=== PATIENT | female | born 1990 | race American Indian/Alaskan Native ===

== ENCOUNTER 2022-04-28 10:46 | Emergency (ER) | payer BC ==
--- NOTE | 2022-04-28 12:17 | Emergency Department Report ---
Stated Complaint: STOMACH PAIN/DEHYDRATION - HPI History of Present Illness: 31 Y with upper abdominal pain x 2 days with N/V no diarrhea. currently on cycle/ no other symptoms reported. - ROS Review of Systems: abdominal pain upper x 2 days N/V - Exam Physical Exam: non labored breathing noted. A/ox4 gait normal MSE screening note: Focused history and physical exam performed. Due to findings the following was ordered: medically screen done and orders placed. pending room assignment to have further eval. Active Orders - 24 Hr 04/28/22 12:14 Complete Blood Count Auto Diff Stat Comprehensive Metabolic Panel Stat HCG Qualitative, Urine Stat Lipase Stat Urinalysis Complete Stat US abdomen limited Stat 04/28/22 12:15 Radiology NPO after MN Prep ONCE ED Disposition for MSE Condition: Stable
--- NOTE | 2022-04-28 13:16 | Ultrasound Report ---
ULTRASOUND ABDOMEN, LIMITED (RIGHT UPPER QUADRANT) INDICATION: upper abdominal pain. COMPARISON: None available. FINDINGS: Pancreas: Obscured by bowel gas without identification of a significant abnormality. Liver: Normal in size, measuring 13.5 cm. Posteriorly along the right hepatic lobe on image 23 is a c ircumscribed hyperechoic mass without internal vascularity measuring 1.8 x 1.3 x 1.4 cm. No other viviana picious lesions. Normal portal venous flow. Gallbladder: No significant abnormality. Sonographic Cabrales's sign: Not performed. Bile ducts: No significant abnormality. Common Bile Duct measures 2.1 mm. Free fluid: None. Additional Findings: None. IMPRESSION: 1. Hyperechoic right hepatic lobe mass as above, most commonly representing a hemangioma. If there is clinical concern, an MRI abdomen with and without contrast (liver protocol) would be helpful for fur ther characterization. 2. No other significant abnormality to explain the patient's pain. Signer Name: Peter Mcmullen MD Signed: 04/28/2022 1:11 PM Workstation Name: [employer]
[2022-04-28 14:13] LABS: Basophils % (Auto) 0.1 % (0.0-1.8); Hematocrit 42.1 % (30.3-42.9); Hemoglobin 14.2 gm/dl (10.1-14.3); Lymphocytes # (Auto) 0.7 K/mm3 (1.2-5.4); Lymphocytes % (Auto) 8.7 % (13.4-35.0); Mean Corpuscular HGB Conc 34 % (30-34); Mean Corpuscular Volume 88 fl (79-97); Monocytes # (Auto) 0.2 K/mm3 (0.0-0.8); Platelet Count 299 K/mm3 (140-440); Red Blood Count 4.78 M/mm3 (3.65-5.03)
[2022-04-28 14:29] LABS: Alanine Aminotransferase 19 units/L (7-56); Albumin 5.4 g/dL (3.9-5); Blood Urea Nitrogen 16 mg/dL (7-17); Calcium 10.4 mg/dL (8.4-10.2); Hemolysis Index 0
[2022-04-28 14:31] LABS: BUN/Creatinine Ratio 23
[2022-04-28] MEDS ORDERED: SODIUM CHLORIDE 0.9% 1000 ML 1,000 ML IV ONE (15:07)
[2022-04-28] MEDS ORDERED: ONDANSETRON 4 MG/2 ML INJ IV ONE (15:07)
[2022-04-28] MEDS ORDERED: MORPHINE 4 MG/1 ML INJ IV ONE (15:07)
[2022-04-28] MEDS ORDERED: FAMOTIDINE 20 MG/2 ML INJ IV ONE (15:07)
--- NOTE | 2022-04-28 15:52 | Emergency Department Report ---
ED Abdominal Pain HPI - General Chief Complaint: Abdominal Pain Stated Complaint: STOMACH PAIN/DEHYDRATION Time Seen by Provider: 04/28/22 14:43 Source: patient Mode of arrival: Ambulatory Limitations: No Limitations - History of Present Illness Initial Comments: 31-year-old female presenting with epigastric abdominal pain that is going on for about 3 days Patient describes sharp pain in epigastric area, unable to eat to tolerate oral intake. Symptoms associated with weakness, fatigue, she denies diarrhea, pain does not radiate to the chest, she denies dysuria, no fever, no sick contacts or recent travel, patient is only 1 at home with the symptom. She denies being . MD Complaint: abdominal pain -: days(s) Location: epigastric Radiation: none Migration to: no migration Severity: moderate Quality: stabbing, sharp Consistency: constant Improves With: nothing Worsens With: eating Associated Symptoms: nausea, vomiting. denies: diarrhea, fever, chills, constip ation, melena - Related Data Previous Rx's Medication Instructions Recorded Last Taken Type Famotidine [Pepcid] 40 mg PO QHS #30 04/28/22 Unknown Rx Ondansetron [Zofran Odt] 4 mg PO Q8HR PRN #20 tab.rapdis 04/28/22 Unknown Rx Allergies Allergy/AdvReac Type Severity Reaction Status Date / Time No Known Allergies Allergy Unverified 04/28/22 12:14 ED Review of Systems ROS: Stated complaint: STOMACH PAIN/DEHYDRATION Other details as noted in HPI Constitutional: denies: chills, fever Eyes: as per HPI ENT: as per HPI Respiratory: denies: cough, shortness of breath Cardiovascular: denies: chest pain, palpitations, dyspnea on exertion Endocrine: denies: excessive sweating, intolerance to cold, intolerance to heat Gastrointestinal: abdominal pain, nausea, vomiting. denies: diarrhea, constipa tion, melena Genitourinary: denies: urgency, frequency Musculoskeletal: denies: back pain, joint swelling Skin: denies: rash, lesions Neurological: weakness. denies: headache, numbness Psychiatric: denies: anxiety Hematological/Lymphatic: denies: easy bleeding ED Past Medical Hx - Past Medical History Previous Medical History?: No - Surgical History Past Surgical History?: No - Medications Home Medications: Home Medications Medication Instructions Recorded Confirmed Last Taken Type Famotidine [Pepcid] 40 mg PO QHS #30 04/28/22 Unknown Rx Ondansetron [Zofran Odt] 4 mg PO Q8HR PRN #20 tab.rapdis 04/28/22 Unknown Rx ED Physical Exam - General Limitations: No Limitations General appearance: alert, in no apparent distress - Head Head exam: Present: atraumatic - Eye Eye exam: Present: normal appearance, PERRL Pupils: Present: normal accommodation - ENT ENT exam: Present: normal exam, normal orophraynx - Neck Neck exam: Present: normal inspection. Absent: tenderness - Respiratory Respiratory exam: Present: normal lung sounds bilaterally. Absent: respiratory distress - Cardiovascular Cardiovascular Exam: Present: regular rate, normal rhythm - GI/Abdominal GI/Abdominal exam: Present: soft, tenderness, normal bowel sounds. Absent: distended, guarding - Extremities Exam Extremities exam: Present: normal inspection, full ROM. Absent: tenderness - Back Exam Back exam: Present: normal inspection, full ROM. Absent: CVA tenderness (R), CVA tenderness (L) - Neurological Exam Neurological exam: Present: alert, oriented X3, CN II-XII intact, normal gait. Absent: motor sensory deficit - Psychiatric Psychiatric exam: Present: normal affect, normal mood - Skin Skin exam: Present: warm, dry, intact, normal color ED Course Vital Signs 04/28/22 12:12 Temperature 98.3 F Pulse Rate 96 H Respiratory 18 Rate Blood Pressure 155/93 [Left] O2 Sat by Pulse 99 Oximetry ED Medical Decision Making - Lab Data Result diagrams: 04/28/22 13:13 04/28/22 13:13 - Radiology Data IMPRESSION: 1. Hyperechoic right hepatic lobe mass as above, most commonly representing a hemangioma. If there is clinical concern, an MRI abdomen with and without contrast (liver protocol) would be helpful for further characterization. 2. No other significant abnormality to explain the patient's pain. - Medical Decision Making 31-year-old female with upper abdominal pain the epigastric area. Differential diagnosis includes gastroenteritis, PUD, cholecystitis, pancreatitis, cholelithiasis, diverticulitis diverticulosis appendicitis gastroparesis other intra-abdominal processes. Ultrasound was obtained which shows IMPRESSION: 1. Hyperechoic right hepatic lobe mass as above, most commonly representing a hemangioma. If there is clinical concern, an MRI abdomen with and without contrast (liver protocol) would be helpful for further characterization. 2. No other significant abnormality to explain the patient's pain. Upon reevaluation abdomen is soft nontender patient passed p.o. challenge, has not had any vomiting episode she is afebrile nontoxic-appearing ambulates steadily. Remainder of her symptoms can be followed up outpatient with a GI for further work-up and evaluation. Discharge home with PPIs, antiemetics, pain management, supportive therapy dietary management and return precautions all discussed with understanding. Patient remained stable nontoxic-appearing, afebrile, ambulating steadily without assistance. Gone over ED findings with patient as well as plan for follow-up. Also discussed return precautions with patient, all questions and concerns addressed. Patient is stable to be discharged follow-up outpatient. Audio voice dictation device used, hence the chart might contain some dictation errors, mispronunciations, wrong spelling and wrong verbiage. Critical care attestation.: If time is entered above; I have spent that time in minutes in the direct care of this critically ill patient, excluding procedure time. ED Disposition Clinical Impression: Epigastric abdominal pain Disposition: 01 HOME / SELF CARE / HOMELESS Is pt being admited?: No Does the pt Need Aspirin: No Condition: Stable Instructions: Abdominal Pain (ED), Gastritis, Adult, [id number], Food Choices for Gastroesophageal Reflux Disease, Child, [id number] Additional Instructions: You have a mass in the lobe of your liver which could represent a hemangioma, however it is important you following up as we discussed for further evaluation Referrals: ANGELINE GARCIA MD [Primary Care Provider] - 3-5 Days [facility] [Provider Group] - 3-5 Days Forms: Work/School Release Form(ED)
[2022-04-28 18:59] VITALS: BP 131/62
== END 2022-04-28 19:29 | disposition home or self-care (01) ==
LOC: ED 10:46
DX: R10.13 Epigastric pain (principal)
CPT/HCPCS: 36415; 76705; 80053; 83690; 85025; 96361; 96374; 96375; 99284; J2270; J2405; J3490; J7030